=== PATIENT | female | born 1995 | race Two or more races ===

== ENCOUNTER 2017-01-07 20:30 | Emergency (ER) | payer OTHER ==
[~2017-01-07] VITALS: Ht 149.9 cm; Wt 56.7 kg
[2017-01-07 20:40] VITALS: BP 134/89
--- NOTE | 2017-01-07 21:29 | RAD ---
RS Compliance Statement: One or more of the following individualized dose reduction techniques were utilized for this examination: 1. Automated exposure control 2. Adjustment of the mA and/or kV according to patient size 3. Use of iterative reconstruction technique CT head without contrast 01/07/2017 9:15 PM INDICATION: Head injury COMPARISON: None available TECHNIQUE: Multiple axial CT images of the head were obtained from skull base through the vertex without intravenous contrast. FINDINGS: Head: Ventricles, sulci and basal cisterns are within normal limits. There is no hydrocephalus. Burden-white matter differentiation is normal. There is no acute intracranial hemorrhage. There is no mass, mass effect or midline shift. Posterior fossa is normal in appearance. Visualized portions of the orbits are normal. Mild mucosal thickening involving the right sphenoid sinus. Mastoid air cells are well aerated. Scalp and calvaria are normal. IMPRESSION: No acute intracranial hemorrhage. Electronically signed by: Adeline Floyd MD (01/07/2017 9:26 PM) [facility]
[2017-01-07] MEDS ORDERED: ONDA4TAB10 SL (21:55)
--- NOTE | 2017-01-07 21:55 | PHYS DOC ---
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 She states she was trying to help him get with out from the shelving area in which someone fell against her head and pinned her between the pillar. Patient denies any loss of consciousness. She does state that she has a smaller to her head. She does state her immunizations are up-to-date. Patient denies taking anything for pain and discomfort. She states after the incident she had an increase headache as well as nausea feeling however did not vomit. Patient also states that she had slight blurred vision. She denies any complaints at this time. Review of Systems Review of Systems Constitutional: Denies fever or chills [] Eyes: Denies change in visual acuity, redness, or eye pain [] HENT: Denies nasal congestion or sore throat [] Respiratory: Denies cough or shortness of breath [] Cardiovascular: No additional information not addressed in HPI [] GI: Denies abdominal pain, nausea, vomiting, bloody stools or diarrhea [] : Denies dysuria or hematuria [] Musculoskeletal: Denies back pain or joint pain [] Integument: Denies rash or skin lesions abrasion left side of head Neurologic: headache, denies focal weakness or sensory changes [] Endocrine: Denies polyuria or polydipsia [] Allergies Allergies Allergies Coded Allergies Type Severity Reaction Last Updated Verified No Known Drug Allergies 01/07/17 No Physical Exam Physical Exam Constitutional: Well developed, well nourished, no acute distress, non-toxic appearance. [] HENT: Normocephalic, atraumatic, bilateral external ears normal, oropharynx moist, no oral exudates, nose normal. Bilateral tympanic membranes appear to be normal. Throat with no erythematous no redness no exudate noted. Eyes: PERRLA, EOMI, conjunctiva normal, no discharge. [] Neck: Normal range of motion, no tenderness, supple, no stridor. [] Cardiovascular:Heart rate regular rhythm, no murmur [] Lungs & Thorax: Bilateral breath sounds clear to auscultation [] Skin: Warm, dry, no erythema, no rash. [] Back: No cervical spine tenderness Extremities: No tenderness, no cyanosis, no clubbing, ROM intact, no edema. [] Neurologic: Alert and oriented X 3, normal motor function, normal sensory function, no focal deficits noted. [] Psychologic: Affect normal, judgement normal, mood normal. [] Current Patient Data Vital Signs Vital Signs Date Time Temp Pulse Resp B/P (MAP) Pulse Ox O2 Delivery O2 Flow Rate FiO2 01/07/17 20:40 98.4 88 16 98 Room Air 98.4 Lab Values Laboratory Tests Test 01/07/17 21:01 POC Urine HCG, Qualitative Hcg negative (Negative) EKG EKG [] Radiology/Procedures Radiology/Procedures [facility] [address] [place], [place] [id number] IMAGING REPORT Signed PATIENT: MANSI ZAMBRANO ACCOUNT: [id number] : 1995 LOCATION: ER AGE: 21 SEX: F EXAM STATUS: REG ER ORD. 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 Automated exposure control 2. Adjustment of the mA and/or kV according to patient size 3. Use of iterative reconstruction technique CT head without contrast 01/07/2017 9:15 PM INDICATION: Head injury COMPARISON: None available TECHNIQUE: Multiple axial CT images of the head were obtained from skull base through the vertex without intravenous contrast. FINDINGS: Head: Ventricles, sulci and basal cisterns are within normal limits. There is no hydrocephalus. Burden-white matter differentiation is normal. There is no acute intracranial hemorrhage. There is no mass, mass effect or midline shift. Posterior fossa is normal in appearance. Visualized portions of the orbits are normal. Mild mucosal thickening involving the right sphenoid sinus. Mastoid air cells are well aerated. Scalp and calvaria are normal. IMPRESSION: No acute intracranial hemorrhage. Electronically signed by: Josseline Malone MD (01/07/2017 9:26 PM) [facility] DICTATED and SIGNED BY: JOSSELINE MALONE MD DATE: 01/07/172123 CC: ANDRÉS HERNANDEZ APRN; UNKNOWN PCP NAME ~ [] Course & Med Decision Making Course & Med Decision Making Pertinent Labs and Imaging studies reviewed. (See chart for details) CT scan was negative for any bleeds. Recommended Tylenol or ibuprofen for. Patient will also be provided with Zofran for nausea as she has been treated for a concussion. Recommended resting and quiet dark room. Recommended avoiding using laptop computers any text messaging, or any TV watching. Patient agrees with discharge instructions. Recommended that she follow-up with your work comp doctor in 3-5 days. Patient will be discharged home with term back to emergency department. Patient agrees with discharge instructions treatment regimens and follow-up recommendations. All questions and concerns been answered at patient' s bedside. [] Dragon Disclaimer Dragon Disclaimer This electronic medical record was generated, in whole or in part, using a voice recognition dictation system. Departure Departure Impression: Primary Impression: Concussion Disposition: HOME, SELF-CARE Condition: STABLE Referrals: UNKNOWN PCP NAME (PCP) Patient Instructions: Concussion and Brain Injury, [id number] Additional Instructions: Home to rest. Avoid watching any type of TV, using any type of laptop or computer devices, no text messaging. This will create increase headaches as well as lightheadedness dizziness and possible vomiting. Tylenol or ibuprofen for pain and discomfort. Medication as prescribed. Ice packs on 20 minutes off 20 minutes several times a day. Follow-up with your work comp physician in the next 3-5 days. Return back to emergency prior signs symptoms of become worse. Scripts Ondansetron (ZOFRAN ODT) 4 Mg Tab.rapdis 1 TAB SL Q8HRS, #10 TAB Prov: ANDRÉS HERNANDEZ APRN 01/07/17 Problem Qualifiers Primary Impression: Concussion Encounter type: initial encounter Loss of consciousness presence/duration: without LOC Qualified Codes: S06.0X0A - Concussion without loss of consciousness, initial encounter ANDRÉS HERNANDEZ APRN Jan 07, 2017 21:55
[2017-01-07] MEDS ORDERED: ACETAMINOPHEN 325 MG TABLET. PO ONE (22:00)
== END 2017-01-07 22:08 | disposition home or self-care (01) ==
LOC: ER 20:30
DX: S06.0X0A Concussion without loss of consciousness, initial encounter (principal); W18.39XA Other fall on same level, initial encounter; Y93.89 Activity, other specified; Y99.8 Other external cause status; Y92.89 Other specified places as the place of occurrence of the external cause
CPT/HCPCS: 70450; 81025; 99284-25